=== PATIENT | male | born 1945 | race African-American/Black ===

== ENCOUNTER 2019-07-28 13:51 | Inpatient (IN) | payer MEDICARE ==
[~2019-07-28] VITALS: Ht 172.7 cm; Wt 77.1 kg
[2019-07-28] MEDS ORDERED: CATAPRES0.2 MG PO (13:55)
[2019-07-28] MEDS ORDERED: MOBIC7.5 MG PO (13:55)
[2019-07-28] MEDS ORDERED: PRAVACHOL20 MG PO (13:55)
[2019-07-28] MEDS ORDERED: CALAN120 MG PO (13:56)
[2019-07-28] MEDS ORDERED: MAXZIDE 75/501 TAB PO (13:56)
[2019-07-28 14:37] LABS: BASOPHILS 0.4 % (0-2); EOSINOPHILS 1.3 % (0-7); HEMATOCRIT 43.9 % (42.0-54.0); HEMOGLOBIN 14.7 g/dL (13.5-17.5); IMMATURE GRANULOCYTES 0.2 % (0-5); LYMPHOCYTES 13.8 % (15-50); MCH 30.3 pg (26.0-34.0); MCHC 33.5 g/dL (31.0-37.0); MCV 90.5 fL (80.0-100.0); MEAN PLATELET VOLUME 9.4 fL (7.4-10.4); MONOCYTES 9.7 % (2-11); NEUTROPHILS 74.6 % (40-80); PLATELET COUNT 331 10x3/uL (130-400); RBC 4.85 10x6/uL (4.20-6.10); RDW 14.1 % (11.5-14.5); WBC 9.5 10x3/uL (4.8-10.8)
[2019-07-28 14:49] LABS: INR 1.03 (0.85-1.17)
[2019-07-28 14:56] LABS: ANION GAP 16.2 mmol/L (8-16); CALCIUM 8.6 mg/dL (8.5-10.1); CREATININE - SERUM 1.2 mg/dL (0.6-1.3); POTASSIUM - SERUM 3.2 mmol/L (3.5-5.1)
[2019-07-28 15:05] LABS: ALBUMIN 3.6 g/dL (3.4-5.0); BILIRUBIN - TOTAL 0.63 mg/dL (0.2-1.3); PROTEIN - SERUM 8.3 g/dL (6.4-8.2)
[2019-07-28 16:08] VITALS: BMI 25.9
[2019-07-28 18:00] VITALS: BP 177/97
[2019-07-28 19:00] VITALS: BP 164/91
[2019-07-28 20:00] VITALS: BP 171/98
--- NOTE | 2019-07-28 20:30 | NUR ---
DR HOWARD IN SPEAKING WITH PT AND FAMILY REGARDING PROCEDURE.
[2019-07-28 21:00] VITALS: BP 145/104
--- NOTE | 2019-07-28 21:56 | NUR ---
PT TO OR ACCOMPANIED BY ANESTHESIA STAFF.
[2019-07-28 23:00] VITALS: BP 175/93
--- NOTE | 2019-07-28 23:18 | NUR ---
PT FAMILY IN TO SEE POST-OP
[2019-07-29] VITALS (15 sets, daily range): BP systolic 132–194; BP diastolic 77–99; Ht 172.7 cm; Wt 77.1 kg
--- NOTE | 2019-07-29 03:00 | NUR ---
PT UP TO BSC, VOIDED 325CC OF CONCENTRATED URINE. INCONTINENT OF BROWN TINGED LIQUID STOOL, COMPLETE BATH AND LINEN CHANGE DONE, PT TOLERATED WITHOUT DIFFICULTY.
--- NOTE | 2019-07-29 05:50 | NUR ---
NO VISITORS PRESENT AT THIS TIME, PT RESTING WITH EYES CLOSED, VSS.0
--- NOTE | 2019-07-29 08:03 | NUR ---
UP IN BED EATING BREAKFAST AT THIS TIME. VSS. NO ACUTE DISTRESS NOTED. PT DENIES ANY PAIN OR DISCONFORT. WILL CONTINUE PLAN OF CARE.
--- NOTE | 2019-07-29 09:12 | NUR ---
FAMILY AT BEDSIDE, UPDATES PROVIDED. VSS. WILL CONTINUE PLAN OF CARE.
--- NOTE | 2019-07-29 11:06 | NUR ---
NO ACUTE DISTRESS NOTED. VSS. WILL CONTINUE PLAN OF CARE.
--- NOTE | 2019-07-29 13:12 | NUR ---
RESTING IN BED AT THIS TIME. VSS. NO ACUTE DISTRESS NOTED. RESPIRATIONS STEADY AND UNLABORED. AWAKENS EASILY WHEN SPOKEN TO. WILL CONTINUE PLAN OF CARE.
--- NOTE | 2019-07-29 14:36 | NUR ---
DR HOWARD PAGED AT THIS TIME. NOTED DURING SERGEI CARE, THE TUBE WHICH WAS INSERTED YESTERDAY BY DR HOWARD WAS NOTED TO BE PARTIALLY STICKING OUT OF ANUS. PER DR HOWARD THIS IS EXACTLY WHERE IT WAS SUITURED IN PROCEDURE. ALSO PER PHYSICIAN OKAY TO TRANSFER TO FLOOR. VSS. NO ACUTE DISTRESS NOTED. WILL CONTINUE PLAN OF CARE.
--- NOTE | 2019-07-29 15:27 | NUR ---
PER DR HOWARD, RESTART HOME VERAPAMIL, CLONIDINE, AND TRIAMTERENE/HCTZ AND DO NOT RESTART OTHER HOME MEDS.
--- NOTE | 2019-07-29 15:35 | NUR ---
PT TO TRANSFER TO ROOM 2205. REPORT CALLED TO RECIEVING NURSE. WILL TRANSFER PT SHORTLY.
--- NOTE | 2019-07-29 16:10 | NUR ---
PT TRANSFERRED TO ROOM 2205 AT THIS TIME VIA WHEELCHAIR ACCOMAPNIED BY HOSPITAL STAFF. TRANSFERRED WITH ALL PERSONAL ITEMS. CHG BATH GIVEN BEFORE PT TRANSFER. VSS. NO ACUTE DISTRESS NOTED. NO FURTHER ACTIONS.
--- NOTE | 2019-07-29 16:41 | NUR ---
RECEIVED REPORT FROM SENIA HARRELL. ASSUMED PT CARE. BP ELEVATED, MEDICATION GIVEN PER SCHEDULE, WILL MONITOR.
[2019-07-30] VITALS: BP 126/71
--- NOTE | 2019-07-30 00:33 | NUR ---
RESTING QUIETLY WITH NO DISTRESS NOTED.RESP EVEN AND UNLABORED.IV TO RAC INTACT WITHOUT REDNESS OR EDEMA NOTED. CL IN REACH. NO COMPLAITNS VOICED.
--- NOTE | 2019-07-30 03:41 | NUR ---
I have reviewed this patient and I concur with the Shift Assessment completed by the Licensed Practical Nurse today this shift.
[2019-07-30 04:00] VITALS: BP 144/73
[2019-07-30 06:14] LABS: ALBUMIN 2.9 g/dL (3.4-5.0); ALKALINE PHOSPHATASE 58 U/L (46-116); ALT (SGPT) 24 U/L (10-68); BILIRUBIN - TOTAL 0.73 mg/dL (0.2-1.3); CALCIUM 8.2 mg/dL (8.5-10.1); CARBON DIOXIDE 24.9 mmol/L (21.0-32.0); CHLORIDE - SERUM 105 mmol/L (98-107); GLUCOSE 94 mg/dL (74-106); MAGNESIUM - SERUM 2.1 mg/dL (1.8-2.4); POTASSIUM - SERUM 3.1 mmol/L (3.5-5.1); PROTEIN - SERUM 6.6 g/dL (6.4-8.2); SODIUM 140 mmol/L (136-145)
[2019-07-30 06:16] LABS: CALC OSMOLALITY 277 mosm/kg (275-300); CREATININE - SERUM 0.7 mg/dL (0.6-1.3); TROPONIN-I < 0.017 ng/mL (0.000-0.060); UREA NITROGEN 9 mg/dL (7-18); eGFR NON AFRICAN AMERICAN > 90 mL/min (90-120)
[2019-07-30 06:20] LABS: BASOPHILS 0.9 % (0-2); EOSINOPHILS 4.7 % (0-7); HEMATOCRIT 36.6 % (42.0-54.0); HEMOGLOBIN 11.9 g/dL (13.5-17.5); IMMATURE GRANULOCYTES 0.3 % (0-5); LYMPHOCYTES 22.3 % (15-50); MCH 29.5 pg (26.0-34.0); MCHC 32.5 g/dL (31.0-37.0); MCV 90.6 fL (80.0-100.0); MEAN PLATELET VOLUME 9.7 fL (7.4-10.4); MONOCYTES 10.6 % (2-11); NEUTROPHILS 61.2 % (40-80); PLATELET COUNT 286 10x3/uL (130-400); RBC 4.04 10x6/uL (4.20-6.10); RDW 13.8 % (11.5-14.5)
--- NOTE | 2019-07-30 08:18 | NUR ---
RESTING IN BED, NO DISTRESS NOTED, IV INFUSING, CONT WITH LOOSE STOOLS, NO DISTRESS NOTED
[2019-07-30 08:42] VITALS: BP 99/62
--- NOTE | 2019-07-30 10:08 | NUR ---
FAMILY HERE, CONCERNED ABOUT THE PLAN FOR PT
[2019-07-30 13:44] VITALS: BP 128/75
[2019-07-30 17:48] VITALS: BP 146/91
[2019-07-30 19:30] VITALS: BP 141/74
[2019-07-31] VITALS (13 sets, daily range): BP systolic 108–173; BP diastolic 63–94
--- NOTE | 2019-07-31 02:39 | NUR ---
I have reviewed this patient and I concur with the Shift Assessment completed by the Licensed Practical Nurse today this shift.
[2019-07-31 05:23] LABS: BASOPHILS 1.3 % (0-2); EOSINOPHILS 6.3 % (0-7); HEMATOCRIT 34.9 % (42.0-54.0); HEMOGLOBIN 11.4 g/dL (13.5-17.5); IMMATURE GRANULOCYTES 0.2 % (0-5); LYMPHOCYTES 32.9 % (15-50); MCH 29.5 pg (26.0-34.0); MCHC 32.7 g/dL (31.0-37.0); MCV 90.4 fL (80.0-100.0); MEAN PLATELET VOLUME 9.6 fL (7.4-10.4); MONOCYTES 10.9 % (2-11); NEUTROPHILS 48.4 % (40-80); PLATELET COUNT 276 10x3/uL (130-400); RBC 3.86 10x6/uL (4.20-6.10); RDW 14.1 % (11.5-14.5); WBC 6.1 10x3/uL (4.8-10.8)
[2019-07-31 05:58] LABS: CALC OSMOLALITY 282 mosm/kg (275-300); CALCIUM 8.4 mg/dL (8.5-10.1); CARBON DIOXIDE 25.3 mmol/L (21.0-32.0); CHLORIDE - SERUM 108 mmol/L (98-107); CREATININE - SERUM 0.8 mg/dL (0.6-1.3); GLUCOSE 91 mg/dL (74-106); MAGNESIUM - SERUM 1.9 mg/dL (1.8-2.4); POTASSIUM - SERUM 3.1 mmol/L (3.5-5.1); SODIUM 143 mmol/L (136-145); UREA NITROGEN 8 mg/dL (7-18); eGFR NON AFRICAN AMERICAN > 90 mL/min (90-120)
--- NOTE | 2019-07-31 08:35 | NUR ---
FAMILY IN ROOM. PATIENT LAYING ON LEFT SIDE. CL IN REACH. NO NEEDS AT THIS TIME. WCTM
--- NOTE | 2019-07-31 13:34 | NUR ---
PATIENT BACK FROM PROCEDURE. VS STABLE. CL AND PHONE IN REACH. FAMILY IN ROOM. WCTM
--- NOTE | 2019-07-31 13:56 | OP ---
PATIENT NAME: FELICIA HAGEN MEDICAL RECORD: [id number] :49 LOCATION:D.MS [facility] ADMISSION DATE:07/28/19 SURGEON: VLADIMIR HOWARD MD DATE OF OPERATION: 07/28/2019 PREOPERATIVE DIAGNOSIS: Sigmoid volvulus. POSTOPERATIVE DIAGNOSES: Sigmoid volvulus. PROCEDURE: Sigmoidoscopic decompression with placement of a transrectal 28-Kyrgyz chest tube. SURGEON: Vladimir Howard MD SUEDING AND BUFFING MACHINE OPERATOR: None. BLOOD LOSS: Minimal. ANESTHESIA: General. COMPLICATIONS: None. The risks, possible complications, and alternatives to the procedure were explained to the patient. I also explained this to the patient's family. Numerous family members are present today. I saw him in the ICU. OPERATIVE COURSE: The patient was conveyed to the operating room urgently on 07/28/2019. General anesthesia was induced by anesthesia staff. The patient was placed in the lithotomy position. The anus and perianal areas were sterilely prepped and draped. Utilizing a rigid sigmoidoscope, I advanced it to the sigmoid rectal junction. I could see a twist in the large bowel at this site. A well-lubricated 28-Kyrgyz chest tube was then placed up through the sigmoidoscope. As soon as I placed it through the twisted area, the large bowel proximal to this decompressed a great volume. I then removed the sigmoidoscope and sutured the chest tube to the side of the anus with a 2-0 silk. A KUB is pending. TRANSINT:[id number] Voice Confirmation ID: [id number] DOCUMENT ID: [id number] VLADIMIR HOWARD MD at 1356 CC: [id number] DICTATION DATE: 07/28/192232 ER PHYSICIAN: 07/29/19 0457 ADM IN [facility] [address] [place] [address]
--- NOTE | 2019-07-31 16:27 | NUR ---
TERE OCHOA (SISTER) TO PATIENT CALLED. UPSET THAT WE COULDN'T TALK TO HER WITHOUT A PASSWORD I EXPLAINED TO HER HIPPA AND SENT THE PHONE CALL IN THERE. PATIENT IS A/O AND GAVE PERMISSION FOR ME TO TALK TO HER. SISTER TERE REQUESTED I TRANSFER THE PHONE CALL INTO THE ROOM. I DID SO.
--- NOTE | 2019-07-31 16:33 | NUR ---
FAMILY ON PHONE WANTING TO KNOW ABOUT HOW PROCEDURE WENT. TOLD THEM WITHOUT THE PASSWORD/SECURITY CODE I WAS NOT ABLE TO SHARE THAT INFORMATION. REQUESTED TO BE TRANSFERRED TO ROOM. I DID.
--- NOTE | 2019-07-31 16:36 | NUR ---
"DAUGHTER" CALLED UP HERE REQUESTING INFORMATION ON PATIENT. ASKED WHETHER OR NOT SHE KNEW THE SECURITY CODE/PASSWORD. SHE SAID NO AND THAT NO ONE HAD SET UP A PASSWORD. TOLD HER THAT SOMEONE DID. "DAUGHTER" SAID IS IT BLUE. I RESPONDED THAT YES THAT WAS IT. THAT HER FATHER WAS FINE. ASKED WHETHER OR NOT HE WAS GETTING DISCHARGED TODAY. I RESPONDED MOST LIKELY NOT. HIS VITAL SIGNS ARE STABLE THOUGH. SHE SAID THAT WAS FINE.
--- NOTE | 2019-07-31 20:00 | NUR ---
ALERT RESTING IN BED, DENIES PAIN OR NEEDS AT THIS TIME, SEE ASSESSMENT, CALL LIGHT IN REACH
[2019-08-01 00:30] VITALS: BP 112/69
[2019-08-01 04:07] LABS: HEPATITIS C ANTIBODY 0.1 S/CO RAT (0.0-0.9)
[2019-08-01 04:50] VITALS: BP 126/78
[2019-08-01 07:01] LABS: BASOPHILS 1.5 % (0-2); EOSINOPHILS 6.8 % (0-7); HEMATOCRIT 37.3 % (42.0-54.0); HEMOGLOBIN 12.3 g/dL (13.5-17.5); IMMATURE GRANULOCYTES 0.2 % (0-5); LYMPHOCYTES 33.8 % (15-50); MCH 29.9 pg (26.0-34.0); MCV 90.5 fL (80.0-100.0); MEAN PLATELET VOLUME 9.9 fL (7.4-10.4); MONOCYTES 9.3 % (2-11); NEUTROPHILS 48.4 % (40-80); PLATELET COUNT 278 10x3/uL (130-400); RBC 4.12 10x6/uL (4.20-6.10); WBC 5.3 10x3/uL (4.8-10.8)
[2019-08-01 07:06] LABS: CALC OSMOLALITY 280 mosm/kg (275-300); CALCIUM 8.4 mg/dL (8.5-10.1); CARBON DIOXIDE 24.6 mmol/L (21.0-32.0); CHLORIDE - SERUM 106 mmol/L (98-107); CREATININE - SERUM 0.8 mg/dL (0.6-1.3); GLUCOSE 88 mg/dL (74-106); MAGNESIUM - SERUM 1.8 mg/dL (1.8-2.4); SODIUM 142 mmol/L (136-145); UREA NITROGEN 9 mg/dL (7-18); eGFR NON AFRICAN AMERICAN > 90 mL/min (90-120)
[2019-08-01 07:07] LABS: POTASSIUM - SERUM 3.6 mmol/L (3.5-5.1); TROPONIN-I < 0.017 ng/mL (0.000-0.060)
--- NOTE | 2019-08-01 08:00 | NUR ---
PATIENT RESTING ON BACK. WATCHING TV. CL IN REACH. NO NEEDS AT THIS TIME. WCTM
[2019-08-01 09:19] VITALS: BP 140/76
[2019-08-01 13:53] VITALS: BP 112/67
--- NOTE | 2019-08-01 14:32 | MORECARE ---
CASE MANAGEMENT DISCHARGE SUMMARY PATIENT: FELICIA HAGEN UNIT: [id number] ADM DATE: 07/28/19 AGE: 73 : [birth year] SEX: M ROOM/BED: D.2205 AUTHOR: ALLEN GIANG PHYSICIAN: REFERRING PHYSICIAN: ERIC HOWARD MD DATE OF SERVICE: 08/01/19 Discharge Plan Patient Name: [facility]ELICIA HAGEN [facility] [facility] 1945 Planned Disposition: Home or Self Care Anticipated Discharge Date: Discharge Date: Expected LOS: Initial Reviewer: [email or web address] Initial Review Date: 07/28/2019 Generated: 08/01/19 3:31 pm Patient Name: FELICIA HAGEN Page [id number] at 1432 All edits/amendments must be made on the electronic document DICTATION DATE: 08/01/19 1431 MONEY ROOM SUPERVISOR: ALE 08/01/19 1431 RPT#: [id number] DC DATE: STATUS: ADM IN [facility] [address] [place] [address] END OF REPORT
--- NOTE | 2019-08-01 14:41 | MORECARE ---
CASE MANAGEMENT DISCHARGE SUMMARY PATIENT: FELCIIA HAGEN UNIT: [id number] ADM DATE: 07/28/19 AGE: 73 : 47 SEX: M ROOM/BED: D.2205 AUTHOR: PADMAJADOC PHYSICIAN: REFERRING PHYSICIAN: ERIC HOWARD MD DATE OF SERVICE: 08/01/19 Discharge Plan Patient Name: FELICIA HAGEN Facility: [facility]:[place] : 1945 Planned Disposition: Home or Self Care Anticipated Discharge Date: Discharge Date: Expected LOS: Initial Reviewer: [email or web address] Initial Review Date: 07/28/2019 Generated: 08/01/19 3:41 pm Comments DCP- Discharge Planning Updated by [email or web address]: Laurie Clark on 08/01/19 1:[address] Patient Name: FELICIA HAGEN Admission Status: ER Accout number: [id number] Admission Date: 07-28-2019 : 1945 Admission Diagnosis: Attending: ERIC HOWARD Current LOS: 4 Anticipated DC Date: Planned Disposition: Home or Self Care Primary Insurance: MEDICARE A & B Discharge Planning Comments: CM met with patient to complete initial dc planning assessment. CM educated patient on the CM role and verbal consent given by patient to complete assessment. Patient lives at home with his girlfriend, Ge Marcus. At discharge patient plans to return home and feels this is a safe discharge. He lives in [facility]. He stated that he is independent with his care at home. Juanita will be his meals on wheels driver home, I have called her to tell her he has dc orders. She will be coming to get him. CM discussed availability of home health, rehab services, and medical equipment. He did not want home health or did not need anything. Patient denied known discharge needs at this time. IMM served and explained. CM will continue to follow and will assist as needed with dc plans/needs. Conduit Bender: Laurie Clark DCPIA - Discharge Planning Initial Assessment Updated by [email or web address]: Laurie Clark on 08/01/19 2:32 pm * Is the patient Alert and Oriented? Yes * How many steps to enter\exit or inside your home? * PCP MAGALY * Pharmacy [facility] IN [place] * Preadmission Environment Home with Family * ADLs Independent * Equipment None * List name and contact numbers for known caregivers / representatives who currently or will assist patient after discharge: GE MARCUS (GIRLFRIEND) JUANITA (COMMERCIAL LOAN ANALYST HOME) [phone] * Verbal permission to speak to the caregivers and representatives has been obtained from the patient. Yes * Community resources currently utilized None * Additional services required to return to the preadmission environment? No * Can the patient safely return to the preadmission environment? Yes * Has this patient been hospitalized within the prior 30 days at any hospital? No Coverage Notice Reviewer: [email or web address] Jyotsna Clark Notice Issued Date-Time: 08/01/2019 14:15 Notice Type: IM Discharge Notice Notice Delivered To: Patient Relationship to Patient: [employer] House Supervisor Name: Delivery Method: HAND - Hand Delivered [place] Days: Prior Verbal Notification: Recipient Understood Notice: Yes Recipient Signature: Yes Med Rec Note Co-signed by Attending: Coverage Notice Comment: Last DP export: 08/01/19 1:32 Patient Name: FELICIA HAGEN Page [phone] at 1441 All edits/amendments must be made on the electronic document DICTATION DATE: 08/01/19 144 CORRUGATOR HELPER: ALE 08/01/19 1441 RPT#: [id number] DC DATE: STATUS: ADM IN [facility] [address] [place] [address] END OF REPORT
--- NOTE | 2019-08-01 16:43 | NUR ---
IV THERAPY REMOVED FROM LEFT FOREARM WITH TIP INTACT. DISCHARGE INSTRUCTIONS GIVEN AND PATIENT VERBALIZED CONSENT. DAUGHTER SIGNED DISCHARGE PAPERWORK AFTER PATIENT ASKED HER TO. REFUSED WHEELCHAIR DOWN.
--- NOTE | 2019-08-03 18:19 | DS ---
PATIENT:FELICIA HAGEN :49 MEDICAL RECORD: [id number] DISCHARGE SUMMARY ADMISSION DATE: 07/28/19 DISCHARGE DATE: 08/01/19 PRINCIPAL DIAGNOSIS: Sigmoid volvulus. OTHER DIAGNOSES: Include history of prostate surgery, hypertension, hypercholesterolemia. PROCEDURE: 1. Rigid sigmoidoscopy with detorsion of sigmoid volvulus with a transanal chest tube. 2. Flexible sigmoidoscopy with removal of transanal chest tube. DESCRIPTION OF PROCEDURE: The patient was a transfer from [place]. He has a sigmoid volvulus. I was able to be detorse this. We gave him somewhat of a mechanical bowel prep. I then removed the transanal chest tube and performed a sigmoidoscopy. A followup KUB revealed no evidence of a recurrent sigmoid volvulus. I have told the patient and his family that this could be a possibility in the future and should he develop abdominal pain and abdominal distention that he needs to seek advice of a physician immediately so that he can be transferred to someone who performs endoscopy. He is being dismissed home on no medicines. There is no need for him to follow up with me in the office unless he has a complication related to this operative procedure. TRANSINT:[id number] Voice Confirmation ID: [id number] DOCUMENT ID: [id number] ERIC HOWARD MD at 1819 CC: [id number] DICTATION DATE: 08/01/19 1346 CROSSING GATEMAN: 08/02/19 0646 DIS IN 08/01/19 [facility] [address] [place] [id number]
--- NOTE | 2019-08-03 18:22 | OP ---
PATIENT NAME: FELICIA HAGEN MEDICAL RECORD: [id number] :49 LOCATION:D.MS [facility] ADMISSION DATE:07/28/19 SURGEON: VLADIMIR HOWARD MD DATE OF OPERATION: 07/31/2019 PREOPERATIVE DIAGNOSES: History of a sigmoid volvulus, which has been detorsed and a transanal chest tube has been placed up through the torsion to act as an internal stent. POSTOPERATIVE DIAGNOSES: History of a sigmoid volvulus, which has been detorsed and a transanal chest tube has been placed up through torsion the as an internal stent, with no evidence of recurrent volvulus. PROCEDURE: Flexible sigmoidoscopy with removal of transanal chest tube (internal stent). SURGEON: Vladimir Howard MD SPONSORSHIP MANAGER: None. BLOOD LOSS: Minimal. ANESTHESIA: IV sedation. COMPLICATIONS: None. The risks, possible complications and alternatives to the procedure were explained to the patient. He elects to proceed. ENDOSCOPIC COURSE: The patient was conveyed to endoscopy suite electively on 07/31/2019. IV sedation was induced by the anesthesia staff. The patient was placed in the [place] position. The chest tube was identified as well as suture to the lateral aspect of the anus. The suture was cut. The chest tube was removed in its entirety. I inserted the colonoscope through the anus. It was easily advanced to the splenic flexure. There was no evidence of recurrent volvulus. The colonoscope was then withdrawn under direct vision. There are no family members immediately available. I will talked to them later and I will plan on dismissing him home with instructions that they should see a physician immediately to be referred to a engineering recruiter or a surgeon should the patient have recurrent symptoms such as abdominal distention and abdominal pain. TRANSINT:[id number] Voice Confirmation ID: [id number] DOCUMENT ID: [id number] OPERATIVE REPORT [id number] FELICIA HAGEN ROBERT MD at 1822 CC: WM CARRIZALES [id number] DICTATION DATE: 07/31/191447 MOLDING MACHINE TENDER: 07/31/192118 DIS IN 08/01/19 [id number] [place] [address]
--- NOTE | 2019-08-05 09:55 | MORECARE ---
CASE MANAGEMENT DISCHARGE SUMMARY PATIENT: FELICIA HAGEN UNIT: [id number] ADM DATE: 07/28/19 AGE: 73 : [birth year] SEX: M ROOM/BED: D.2205 AUTHOR: PADMAJADOC PHYSICIAN: REFERRING PHYSICIAN: ERIC HOWARD MD DATE OF SERVICE: 08/05/19 Discharge Plan Patient Name: FELICIA HAGEN Facility: [facility]:[place] : 1945 Planned Disposition: Home or Self Care Anticipated Discharge Date: Discharge Date: 08/01/2019 Expected LOS: Initial Reviewer: [email or web address] Initial Review Date: 07/28/2019 Generated: 08/05/19 10:54 am Comments DCP- Discharge Planning Updated by [email or web address]: Laurie Clark on 08/01/19 1:[address] Patient Name: FELICIA HAGEN Admission Status: ER Accout number: [id number] Admission Date: 07-28-2019 : 1945 Admission Diagnosis: Attending: ERIC HOWARD Current LOS: 4 Anticipated DC Date: Planned Disposition: Home or Self Care Primary Insurance: MEDICARE A & B Discharge Planning Comments: CM met with patient to complete initial dc planning assessment. CM educated patient on the CM role and verbal consent given by patient to complete assessment. Patient lives at home with his girlfriend, Ge Marcus. At discharge patient plans to return home and feels this is a safe discharge. He lives in [facility]. He stated that he is independent with his care at home. Juanita will be his trailer tank truck driver home, I have called her to tell her he has dc orders. She will be coming to get him. CM discussed availability of home health, rehab services, and medical equipment. He did not want home health or did not need anything. Patient denied known discharge needs at this time. IMM served and explained. CM will continue to follow and will assist as needed with dc plans/needs. Cat Breeder: Laurie Clark DCPIA - Discharge Planning Initial Assessment Updated by [email or web address]: Laurie Clark on 08/01/19 2:32 pm * Is the patient Alert and Oriented? Yes * How many steps to enter\exit or inside your home? * PCP MAGALY * Pharmacy [facility] IN [place] * Preadmission Environment Home with Family * ADLs Independent * Equipment None * List name and contact numbers for known caregivers / representatives who currently or will assist patient after discharge: GE MARCUS (GIRLFRIEND) JUANITA (ENTRY LEVEL WEB DEVELOPER HOME) [phone] * Verbal permission to speak to the caregivers and representatives has been obtained from the patient. Yes * Community resources currently utilized None * Additional services required to return to the preadmission environment? No * Can the patient safely return to the preadmission environment? Yes * Has this patient been hospitalized within the prior 30 days at any hospital? No Coverage Notice Reviewer: [email or web address] Jyotsna Clark Notice Issued Date-Time: 08/01/2019 14:15 Notice Type: IM Discharge Notice Notice Delivered To: Patient Relationship to Patient: Outside Salesperson Name: Delivery Method: HAND - Hand Delivered [place] Days: Prior Verbal Notification: Recipient Understood Notice: Yes Recipient Signature: Yes Med Rec Note Co-signed by Attending: Coverage Notice Comment: Last DP export: 08/01/19 1:41 Patient Name: FELICIA HAGEN Page [phone] at 0955 All edits/amendments must be made on the electronic document DICTATION DATE: 08/05/19953 ICICLE MACHINE OPERATOR: ALE 08/05/19953 RPT#: [id number] DC DATE:08/01/19 STATUS: DIS IN [facility] [address] [place] [address] END OF REPORT
== END 2019-08-01 16:44 | disposition home or self-care (01) | DRG 389 ==
LOC: D.ER 13:51 → D.MS 15:02 → D.ICU 15:02 → D.MS 07-29 16:04
PROVIDERS: Family Medicine; Internal Medicine Nephrology; ADMIT Surgery; ATTEND Surgery
PROC: 0D9N80Z Drainage of Sigmoid Colon with Drainage Device, Via Natural or Artificial Opening Endoscopic (ICD-10-PCS; 2019-07-28)
PROC: 0DNN8ZZ Release Sigmoid Colon, Via Natural or Artificial Opening Endoscopic (ICD-10-PCS; principal; 2019-07-28 18:30)
PROC: 0DJD8ZZ Inspection of Lower Intestinal Tract, Via Natural or Artificial Opening Endoscopic (ICD-10-PCS; 2019-07-31)
DX: K56.2 Volvulus (principal); N17.9 Acute kidney failure, unspecified; I10 Essential (primary) hypertension; E87.6 Hypokalemia; D64.9 Anemia, unspecified; E78.5 Hyperlipidemia, unspecified